=== PATIENT | female | born 1950 | race Caucasian/White ===

== ENCOUNTER 2022-05-14 12:03 | Outpatient (CLI) | payer MEDICARE, SELFPAY ==
[2022-05-14 21:23] LABS: Chloride* 107 mmol/L (96-114); Potassium* 3.9 mmol/L (3.6-5.1); Sodium* 138 mmol/L (135-149)
[2022-05-14 21:26] LABS: Blood Urea Nitrogen* 15 mg/dL (7-30); Carbon Dioxide* 26 mmol/L (20-32); Creatinine* 0.9 mg/dL (0.5-1.5); Estimated Glomerular Filt Rate 69 ml/min; Glucose* 97 mg/dL (60-115)
[2022-05-14 21:27] LABS: Calcium* 9.4 mg/dL (8.4-10.6)
[2022-05-14 21:58] LABS: TSH With Reflex to FT4* 0.527 uIU/mL (0.270-4.200)
== END 2022-05-14 12:04 | disposition home or self-care (01) ==
PROVIDERS: PCP Family Medicine; Visit Provider Family Medicine
DX: E05.00 Thyrotoxicosis with diffuse goiter without thyrotoxic crisis or storm (principal); I10 Essential (primary) hypertension; M81.0 Age-related osteoporosis without current pathological fracture; E78.5 Hyperlipidemia, unspecified
CPT/HCPCS: 80048; 84443

== ENCOUNTER 2022-06-06 12:36 | Outpatient (CLI) | payer MEDICARE, SELFPAY ==
--- NOTE | 2022-06-06 13:00 | CRLHL7_ITS ---
For Patients: As a result of the Century Cures Act, medical imaging exams and procedure reports are released immediately into your electronic medical record. You may view this report before your referring provider. If you have questions, please contact your health care provider. DXA BONE MINERAL DENSITY STUDY Current height (in): 66.0. Weight (lb): 154.0. Menopause age: 52. Ethnicity: White. 1. Have you had a previous hip or vertebral fracture? No. 2. Have you had any fractures during your adult life which did not result from significant trauma (e.g., auto accident)? No. 3. Did either of your parents have a hip fracture? No. 4. Do you smoke? No. 5. Have you ever taken Glucocorticoids? No. 6. Do you have rheumatoid arthritis? No. 7. Do you have secondary osteoporosis? No. 8. Do you drink 3 or more alcoholic drinks per day? No. 9. Are you being treated for osteoporosis? No. 10. Have you ever taken any of the following medications: Actonel, Evista, Fosamax, Miacalcin, Reclast, Boniva, Forteo, HRT (i.e. estrogen/hormone therapy), Protelos, Prolia, Vitamin D, Calcium, other ??? please specify. ANSWER: Yes, calcium, vitamin D. 11. Do you have any of the following medical conditions: Anorexia or bulimia, asthma or emphysema, end stage renal disease, hyperparathyroidism, any seizure disorders, cancer, inflammatory bowel diseases, hysterectomy, other ??? please specify. ANSWER: No. 12. What was your maximum height (inches)? 67. 13. Do you perform weight bearing exercise regularly? Yes. 14. Do you regularly consume dairy products? No. 15. Do you drink caffeinated beverages? Yes. If female: 16. At what age did your period start? 12. 17. Are you premenopausal? No. 18. How many full term pregnancies have you had? 2. 19. Have you ever missed your period for more than 6 months in a row (not including or menopause)? No. TECHNIQUE: Bone mineral density study was performed using the [employer]. FINDINGS: The results of the study expressed as bone mineral density (BMD) are as follows: Lumbar spine L1 to L4: BMD: 0.818 g/cm2. T-score: -2.1. Z-score: 0.1. Neck Left: BMD: 0.562 g/cm2. T-score: -2.6. Z-score: -0.7. Right: BMD: 0.581 g/cm2. T-score: -2.4. Z-score: -0.6. Total Left: BMD: 0.696 g/cm2. T-score: -2.0. Z-score: -0.5. Right: BMD: 0.673 g/cm2. T-score: -2.2. Z-score: -0.7. IMPRESSION: Osteoporosis. COMPARISON: Compared with scan of 02/09/2019, the bone mineral density has increased by 4.2 percent at the spine and increased by 10.2 percent at the hip. Slava Resendiz M.D. Diagnostic Radiologist [email or web address] Transcribed: 8:37 am DW/Dictated by: Slava Resendiz MD @ 06/07/2022 8:22:00 AM (Electronically Signed)
== END 2022-06-06 12:37 | disposition home or self-care (01) ==
PROVIDERS: PCP Family Medicine; Visit Provider Family Medicine
DX: M81.0 Age-related osteoporosis without current pathological fracture (principal)
CPT/HCPCS: 77080

== ENCOUNTER 2022-07-06 09:56 | Outpatient (CLI) | payer MEDICARE, SELFPAY | END 2022-07-06 09:57 | disposition home or self-care (01) | LOC: OP CLINIC 09:57 | PROVIDERS: PCP Family Medicine; Visit Provider Internal Medicine | DX: R19.5 Other fecal abnormalities (principal); K57.30 Diverticulosis of large intestine without perforation or abscess without bleeding | CPT/HCPCS: 45378; J2250; J3010 ==

== ENCOUNTER 2023-09-18 09:22 | Outpatient (CLI) | payer MEDICARE, SELFPAY | END 2023-09-18 09:23 | disposition home or self-care (01) | PROVIDERS: PCP Family Medicine; Visit Provider Family Medicine | DX: I10 Essential (primary) hypertension (principal); E78.5 Hyperlipidemia, unspecified; E05.00 Thyrotoxicosis with diffuse goiter without thyrotoxic crisis or storm; M81.0 Age-related osteoporosis without current pathological fracture; R32 Unspecified urinary incontinence | CPT/HCPCS: 80053; 80061; 82043; 82306; 82570; 84443; 87086 ==

== ENCOUNTER 2025-01-29 13:22 | Outpatient (CLI) | payer MEDICARE, SELFPAY | END 2025-01-29 13:23 | disposition home or self-care (01) | PROVIDERS: PCP Family Medicine; Visit Provider Family Medicine | DX: I10 Essential (primary) hypertension (principal); E78.5 Hyperlipidemia, unspecified; E04.9 Nontoxic goiter, unspecified; M81.0 Age-related osteoporosis without current pathological fracture; N18.9 Chronic kidney disease, unspecified; Z11.59 Encounter for screening for other viral diseases; Z86.39 Personal history of other endocrine, nutritional and metabolic disease | CPT/HCPCS: 80053; 80061; 82043; 82570; 84443; 86803 ==

== ENCOUNTER 2025-03-31 12:42 | Outpatient (CLI) | payer MEDICARE, SELFPAY ==
--- NOTE | 2025-03-31 13:00 | CRLHL7_ITS ---
For Patients: As a result of the Century Cures Act, medical imaging exams and procedure reports are released immediately into your electronic medical record. You may view this report before your referring provider. If you have questions, please contact your health care provider. Examination: US abdominal aorta Indication: Hyperlipidemia. Abdominal aortic aneurysm screening. Technique: Mejia scale and color Doppler images of the aorta and common iliac arteries are obtained. Comparison: None Findings: Proximal aorta: 3.6 x 3.0 cm Mid aorta: 2.2 x 2.4 cm Distal aorta: 1.7 x 1.6 cm Right common iliac artery: 1.1 x 0.9 cm Left common iliac artery: 1.2 x 1.2 cm Recommended imaging interval for ectatic aorta: 3.5-3.9 cm: 2 years Impression: 3.6 cm proximal abdominal aortic aneurysm. Dictated by Slava Resendiz MD @ 03/31/2025 2:06:23 PM (Electronically Signed)
--- NOTE | 2025-03-31 13:00 | CRLHL7_ITS ---
For Patients: As a result of the Century Cures Act, medical imaging exams and procedure reports are released immediately into your electronic medical record. You may view this report before your referring provider. If you have questions, please contact your health care provider. INDICATION: Nontoxic thyroid COMPARISON: none TECHNIQUE: Gilman scale and color Doppler images were acquired of the thyroid gland. FINDINGS: Thyroid is diffusely enlarged and heterogeneous with innumerable nodules bilaterally, cystic and solid/cystic, TR 2/TR 3. The right lobe measures 6.1 x 4.3 x 4.0 cm and the left lobe measures 7.4 x 5.2 x 5.8 cm in size. There are no suspicious masses. The color Doppler images demonstrate normal vascularity. There is no evidence of cervical lymphadenopathy or parathyroid mass. IMPRESSION: Multinodular goiter with innumerable TR 2/TR 3 nodules bilaterally. No FNA indicated. Dictated by Slava Resendiz MD @ 03/31/2025 2:15:58 PM (Electronically Signed)
--- NOTE | 2025-03-31 14:30 | CRLHL7_ITS ---
For Patients: As a result of the Century Cures Act, medical imaging exams and procedure reports are released immediately into your electronic medical record. You may view this report before your referring provider. If you have questions, please contact your health care provider. XR DXA Bone Mineral Density (BMD) Reason for exam: Hyperlipidemia. Current height (in): 66. Weight (lb): 164. Menopause age: 52. Ethnicity: White. 1. Have you had a previous hip or vertebral fracture? No. 2. Have you had any fractures during your adult life which did not result from significant trauma (e.g., auto accident)? No. 3. Did either of your parents have a hip fracture? No. 4. Do you smoke? No. 5. Have you ever taken Glucocorticoids? No. 6. Do you have rheumatoid arthritis? No. 7. Do you have secondary osteoporosis? No. 8. Do you drink 3 or more alcoholic drinks per day? No. 9. Are you being treated for osteoporosis? No. 10. Have you ever taken any of the following medications: Actonel, Evista, Fosamax, Miacalcin, Reclast, Boniva, Forteo, HRT (i.e. estrogen/hormone therapy), Protelos, Prolia, Vitamin D, Calcium, other ??? please specify. ANSWER: Yes, vitamin D, calcium. 11. Do you have any of the following medical conditions: Anorexia or bulimia, asthma or emphysema, end stage renal disease, hyperparathyroidism, any seizure disorders, cancer, inflammatory bowel diseases, hysterectomy, other ??? please specify. ANSWER: No. 12. What was your maximum height (inches)? 67. 13. Do you perform weight bearing exercise regularly? No. 14. Do you regularly consume dairy products? Yes. 15. Do you drink caffeinated beverages? Yes. 16. At what age did your period start? 12. 17. Are you premenopausal? No. 18. How many full term pregnancies have you had? 2. 19. Have you ever missed your period for more than 6 months in a row (not including or menopause)? No. TECHNIQUE: Bone mineral density study was performed using the [employer]. FINDINGS: The results of the study expressed as bone mineral density (BMD) are as follows: Lumbar spine L1 to L4: BMD: 0.832 g/cm2. T-score: -2.0. Z-score: 0.4. Neck Left: BMD: 0.527 g/cm2. T-score: -2.9. Z-score: -0.9. Right: BMD: 0.522 g/cm2. T-score: -2.9. Z-score: -0.9. Total Left: BMD: 0.690 g/cm2. T-score: -2.1. Z-score: -0.4. Right: BMD: 0.679 g/cm2. T-score: -2.2. Z-score: -0.4. IMPRESSION: Osteoporosis. *Comparison exams done prior to 03/2020 were performed on different unit, [employer]. COMPARISON: Compared with scan of 06/06/2022, the bone mineral density has increased by 1.8 percent at the spine and increased by 0.1 percent at the hip. Compared with scan of 02/09/2019, the bone mineral density has increased by 4.2 percent at the spine and increased by 10.2 percent at the hip. Slava Resendiz M.D. Diagnostic Radiologist [email or web address] bM/Dictated by: Slava Resendiz MD @ 04/01/2025 11:59:00 AM (Electronically Signed)
== END 2025-03-31 12:43 | disposition home or self-care (01) ==
LOC: US 12:43
PROVIDERS: PCP Family Medicine; Visit Provider Family Medicine
DX: Z13.6 Encounter for screening for cardiovascular disorders (principal); I71.40 Abdominal aortic aneurysm, without rupture, unspecified; E78.5 Hyperlipidemia, unspecified; Z87.891 Personal history of nicotine dependence; E04.9 Nontoxic goiter, unspecified; Z86.39 Personal history of other endocrine, nutritional and metabolic disease; M81.0 Age-related osteoporosis without current pathological fracture; N18.9 Chronic kidney disease, unspecified
CPT/HCPCS: 76536; 76706; 77080